=== PATIENT | male | born 1985 | race Asian ===

== ENCOUNTER 2021-04-04 11:45 | Inpatient (IN) | payer OTHER ==
[~2021-04-04] VITALS: Ht 165.1 cm; Wt 89.8 kg
[2021-04-04] MEDS ORDERED: ADDE20TA PO (12:05)
[2021-04-04] MEDS ORDERED: LIDO5DIS41 TOP (12:05)
[2021-04-04] MEDS ORDERED: CLON1TAB8 PO (12:05)
[2021-04-04] MEDS ORDERED: LUNE3TAB36 PO (12:05)
[2021-04-04 13:47] LABS: HEMATOCRIT 46.5 % (42.0-52.0); HEMOGLOBIN 15.8 g/dl (13.5-17.5); MEAN CORPUSCULAR HEMOGLOBIN 30.6 pg (27.0-33.0); MEAN CORPUSCULAR VOLUME 89.9 fl (80.0-96.0); PLATELET COUNT, AUTOMATED 341 10^3/uL (150-450); RED BLOOD COUNT 5.17 10^6/uL (4.30-6.10); WHITE BLOOD COUNT 6.9 10^3/uL (4.0-10.0)
[2021-04-04 14:09] LABS: AMPHETAMINES LEVEL URINE POSITIVE (NEGATIVE); BARBITURATES URINE NEGATIVE (NEGATIVE); BENZODIAZEPINES URINE POSITIVE (NEGATIVE); CANNABINOIDS URINE NEGATIVE (NEGATIVE); COCAINE METABOLITE URINE NEGATIVE (NEGATIVE); METHADONE URINE NEGATIVE (NEGATIVE); OPIATES URINE NEGATIVE (NEGATIVE); PHENCYCLIDINE URINE NEGATIVE (NEGATIVE)
[2021-04-04 14:22] LABS: ACETAMINOPHEN LEVEL < 2.0 UG/ML (10.0-30.0); ALT/SGPT 64 U/L (12-78); BILIRUBIN,DIRECT 0.2 MG/DL (0.0-0.2); BILIRUBIN,TOTAL 0.7 MG/DL (0.2-1.0); BLOOD UREA NITROGEN 24 MG/DL (7-18); CALCIUM LEVEL 8.7 MG/DL (8.5-10.1); CARBON DIOXIDE LEVEL 27 MEQ/L (21-32); CHLORIDE LEVEL 109 MEQ/L (98-107); CREATININE FOR GFR 1.18 MG/DL (0.70-1.30); ETHYL ALCOHOL (ETHANOL) < 0.003 % (0.000-0.010); GLOMERULAR FILTRATION RATE > 60.0 (>60); GLUCOSE, FASTING 74 MG/DL (70-100); POTASSIUM SERUM 3.7 MEQ/L (3.5-5.1); SALICYLATE LEVEL < 1.7 MG/DL (5.0-30.0); SODIUM LEVEL 142 MEQ/L (136-145); THYROID STIMULATING HORMONE 0.759 uIU/ML (0.358-3.740); TOTAL PROTEIN 7.8 GM/DL (6.4-8.2)
[2021-04-04] MEDS ORDERED: traZODone 50 MG TAB PO PRN (18:25)
[2021-04-04] MEDS ORDERED: MOM 30ML SUSPENSION UDC PO PRN (18:25)
[2021-04-04] MEDS ORDERED: ACETAMINOPHEN TAB 650MG DOSE (2X325MG) PO PRN (18:25)
[2021-04-04] MEDS ORDERED: MAALOX 30 ML SUSP *UDC PO PRN (18:25)
[2021-04-04] MEDS ORDERED: ADDE10TA PO (20:07)
[2021-04-04] MEDS ORDERED: PATIENT COMMENT (20:14)
[2021-04-04] MEDS ORDERED: ADDERALL 5 MG TAB PO SCH (21:00)
[2021-04-04 21:21] VITALS: BP 134/96
[2021-04-04] MEDS ORDERED: LORazepam 1 MG TAB PO PRN (21:50)
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
== END 2021-04-05 14:40 | disposition home or self-care (01) | DRG 885 ==
LOC: M ED 11:45 → M ED INP 18:23 → M PSY 20:34
PROVIDERS: ADMIT Psychiatry & Neurology Psychiatry; ATTEND Psychiatry & Neurology Psychiatry
DX: F39 Unspecified mood [affective] disorder (principal); Z79.899 Other long term (current) drug therapy; Z20.822 Contact with and (suspected) exposure to COVID-19; Z63.0 Problems in relationship with spouse or partner